=== PATIENT | male | born 1985 | race Caucasian/White ===

== ENCOUNTER 2019-03-09 19:05 | Emergency (ER) | payer OTHER ==
[2019-03-09] MEDS ORDERED: Lidocaine 1% 50 ML MDV INJECT ONE (19:18)
[2019-03-09] MEDS ORDERED: Diphtheria,Pertussis(Acell),Tetanus Vaccine 0.5 ML Syringe IM ONE (19:19)
--- NOTE | 2019-03-09 19:40 | EDM.PDOC ---
ED HPI GENERAL MEDICAL PROBLEM - General Chief Complaint: Laceration Stated Complaint: GASHED LEFT LEG AT WORK Time Seen by Provider: 03/09/19 19:15 - History of Present Illness INITIAL COMMENTS - FREE TEXT/NARRATIVE: Patient is an unfortunate 33-year-old male who presents to the emergency department tonight with complaint of laceration left thigh. Patient was moving a flow line and the kink released which caused the line to snap and pushed his leg up against a guardrail which caused a 8 cm laceration on the anterior surface of his left thigh and a 6 cm laceration on the lateral surface of his left thigh. Both are full dermis thickness lacerations which have the muscle sheath exposed. Active bleeding at this time no foreign body noted distal neurovascular is intact Left Thigh Pain Score (Numeric/FACES): 7 - Related Data Allergies Allergy/AdvReac Type Severity Reaction Status Date / Time No Known Allergies Allergy Verified 03/09/19 19:16 Home Meds: Home Meds Cephalexin [Keflex] 500 mg PO QID #28 capsule 03/09/19 [Rx] Past Medical History HEENT History: Reports: None Cardiovascular History: Reports: None Respiratory History: Reports: None Gastrointestinal History: Reports: None Genitourinary History: Reports: None Musculoskeletal History: Reports: Fracture Neurological History: Reports: None Psychiatric History: Reports: None Endocrine/Metabolic History: Reports: None Hematologic History: Reports: None Immunologic History: Reports: None Oncologic (Cancer) History: Reports: None Dermatologic History: Reports: None - Infectious Disease History Infectious Disease History: Reports: None - Past Surgical History Head Surgeries/Procedures: Reports: None Other Musculoskeletal Surgeries/Procedures:: Pt had surgery on his left lower leg after breaking it. Social & Family History - Tobacco Use Smoking Status *Q: Never Smoker - Caffeine Use Caffeine Use: Reports: Coffee - Recreational Drug Use Recreational Drug Use: No ED ROS GENERAL - Review of Systems Review Of Systems: See Below Constitutional: Denies: Fever, Chills Musculoskeletal: Reports: Leg Pain, Other (Laceration) ED EXAM, SKIN/RASH Exam: See Below Exam Limited By: No Limitations General Appearance: Alert, WD/WN, Anxious, Moderate Distress Extremities: No Pedal Edema, Normal Capillary Refill, Leg Pain, Other (Patient has an 8 cm linear laceration to his left thigh with full dermis thickness muscle sheath exposed, patient has 6 cm laceration at the lateral aspect of his left thigh with muscle sheath exposed, no active bleeding no foreign body noted) Neurological: Alert, Oriented, CN II-XII Intact Psychiatric: Normal Affect Skin: Warm, Dry ED SKIN PROCEDURES - Additional/Other Procedure(s) Other (Free Text) Procedure(s): Laceration repair left thigh anterior surface 8 cm linear laceration full dermis thickness muscle sheath exposed, Betadine prep, lidocaine 1% 8 mL's, wound was cleansed and irrigated thoroughly with 300 mL NS and Betadine, wound closed with #10 sangita, patient tolerated procedure well and dressing by nursing Laceration repair #2 left thigh lateral surface 6 cm linear laceration full dermis thickness muscle sheath exposed, Betadine prep, lidocaine 1% 9 mL's, wound was cleansed and irrigated thoroughly with 200 mL's of NS and Betadine, wound was closed with #8 sangita, patient tolerated procedure well dressing by nursing Course - Vital Signs Last Recorded V/S: Last Vital Signs Temp 98.1 F 03/09/19 19:12 Pulse 73 03/09/19 19:12 Resp 16 03/09/19 19:12 BP 142/90 H 03/09/19 19:12 Pulse Ox 100 03/09/19 19:12 - Orders/Labs/Meds Orders: Active Orders 24 hr Category Date Time Status Vaccines to be Administered [RC] PER UNIT ROUTINE Care 03/09/19 19:19 Active Meds: Medications Discontinued Medications Generic Name Dose Route Start Last Admin Trade Name Freq PRN Reason Stop Dose Admin Diphtheria/Tetanus/Acell Pertussis 0.5 ml 03/09/19 19:19 03/09/19 19:33 Adacel IM 03/09/19 19:20 0.5 ml .ONCE ONE Administration Lidocaine HCl 0 ml 03/09/19 19:18 03/09/19 19:25 Xylocaine 1% INJECT 03/09/19 19:19 50 ml ONETIME ONE Administration Departure - Departure Time of Disposition: 19:42 Disposition: Home, Self-Care 01 Clinical Impression: Laceration of left thigh Qualifiers: Encounter type: initial encounter Qualified Code(s): S71.112A - Laceration without foreign body, left thigh, initial encounter Laceration of left thigh without foreign body Qualifiers: Encounter type: initial encounter Qualified Code(s): S71.112A - Laceration without foreign body, left thigh, initial encounter - Discharge Information Prescriptions: Cephalexin [Keflex] 500 mg PO QID #28 capsule Referrals: PCP,None [Primary Care Provider] - Forms: ED Department Discharge, ED Return to Work/School Form Additional Instructions: Home, rest, clean wound daily, apply Neosporin and bandage, return as needed for worsening condition, sangita out in 10-14 days - My Orders Last 24 Hours: My Active Orders 03/09/19 19:19 Vaccines to be Administered [RC] PER UNIT ROUTINE - Assessment/Plan Last 24 Hours: My Active Orders 03/09/19 19:19 Vaccines to be Administered [RC] PER UNIT ROUTINE
== END 2019-03-09 20:00 | disposition home or self-care (01) ==
LOC: JD.ED 19:05
DX: S71.112A Laceration without foreign body, left thigh, initial encounter (principal); Z23 Encounter for immunization; W22.8XXA Striking against or struck by other objects, initial encounter
CPT/HCPCS: 13121; 13122; 90471; 90715; 99282; J2001; 12005; 99283